=== PATIENT | male | born 1945 | race Caucasian/White ===

== ENCOUNTER 2019-11-30 18:54 | Emergency (ER) | payer MEDICARE, OTHER, SELFPAY ==
[2019-11-30 18:56] VITALS: BP 150/70; PULSE 60; RESP 20; TEMP 36.8; O2SAT 100
--- NOTE | 2019-11-30 19:09 | ED.GENADULT ---
HPI - General Adult General Chief complaint: Wound/Laceration Stated complaint: hand laceration Time Seen by Provider: 11/30/19 19:03 Source: patient Mode of arrival: ambulatory Limitations: no limitations History of Present Illness HPI narrative: Patient is a 73-year-old male who presents to emergency department for evaluation of skin tear to the left hand that occurred just prior to arrival caught the hand on an object noting mild discomfort of the hand worse with palpation unsure as to tetanus status records reviewed that he had one in 2018 denies numbness or tingling Related Data Allergies Allergy/AdvReac Type Severity Reaction Status Date / Time Wasp Allergy Intermediate SWELLING Uncoded 02/05/18 09:40 Review of Systems Review of Systems: Narrative: CONSTITUTIONAL: Denies fever, chills, or sweats. SKIN: Positive for skin tear MUSCULOSKELETAL: Denies joint pain, or myalgia. NEUROLOGIC: Denies numbness, or weakness. PENDING SALE TO [facility] Past Medical History Medical History (Updated 11/30/19 @ 19:13 by Ramirez Pham PA-C) Arthritis Social History Social History Smoking status: Never smoker Exam Narrative: Exam Narrative: GENERAL: Well-appearing, well-nourished, and in no acute distress. HEAD: Normocephalic, atraumatic. EYES: PERRLA and EOMI. ENT: Nares clear, no rhinorrhea or epistaxis. Mucous membranes moist. EXTREMITIES: Normal range of motion. No edema. SKIN: Warm, dry, no rash. 2.5 cm linear skin tear of the dorsal surface of the left hand NEURO: No focal deficits. Alert and oriented x3. Neurovascularly intact PSYCH: Normal mood and affect. Course Course Emergency Course: Patient in the room in no distress aware of case findings treatment plan and diagnosis Vital Signs Vital signs: Vital Signs Temperature 98.2 F 11/30/19 18:56 Pulse Rate 60 11/30/19 18:56 Respiratory Rate 11/30/19 18:56 Blood Pressure 150/70 H 11/30/19 18:56 Pulse Oximetry 100 11/30/19 18:56 Temperature 98.2 F 11/30/19 18:56 Pulse Rate 60 11/30/19 18:56 Respiratory Rate 20 11/30/19 18:56 Blood Pressure 150/70 H 11/30/19 18:56 Pulse Oximetry 100 11/30/19 18:56 Procedures Other Procedure Procedure 1: Other Procedure: Wound was prepped with Shur-Clens with Mepitel dressing and antibiotic ointment placed Medical Decision Making MDM Narrative Medical decision making narrative: Patients injury or pain is consistent with musculoskeletal etiology. No signs of neurological or vascular compromise on exam. Compartments and tisues are soft without signs of compartment syndrome. Pain is felt appropriate for further evaluation on an outpatient basis. Vital Signs Vital Signs: Vital Signs Temperature 98.2 F 11/30/19 18:56 Pulse Rate 60 11/30/19 18:56 Respiratory Rate 20 11/30/19 18:56 Blood Pressure 150/70 H 11/30/19 18:56 Pulse Oximetry 100 11/30/19 18:56 Temperature 98.2 F 11/30/19 18:56 Pulse Rate 60 11/30/19 18:56 Respiratory Rate 20 11/30/19 18:56 Blood Pressure 150/70 H 11/30/19 18:56 Pulse Oximetry 100 11/30/19 18:56 Discharge Plan Discharge Clinical Impression: Skin tear Patient Disposition: Home, Self-Care Condition: Stable Instructions: Antibiotic Form, Acute Wounds (ED) Additional Instructions: Follow up with primary care in the next 7 days for reevaluation as needed return if symptoms worsen or concerns, any increase in redness swelling pain or fever over 100.5 Clean wound with mild soapy water. Apply antibiotic ointment and clean dressing at least three times daily Follow-up/Referrals: PHYSICIAN,BREAKFAST COOK [Primary Care Provider] - Isma Driscoll DO [Physician] -
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
[2019-11-30] MEDS: FAMOTIDINE 20 MG TABLET PO (19:50)
[2019-11-30] MEDS: hydrOXYzine HCL 25 MG TABLET PO (19:50)
[2019-11-30 19:55] VITALS: RESP 18; TEMP 36.7
== END 2019-11-30 19:40 | disposition home or self-care (01) ==
PROVIDERS: Emergency Provider Emergency Medicine
DX: S61.412A Laceration without foreign body of left hand, initial encounter (principal); M19.90 Unspecified osteoarthritis, unspecified site; W26.9XXA Contact with unspecified sharp object(s), initial encounter
CPT/HCPCS: 73140; 99283; A9270

== ENCOUNTER 2023-04-23 21:08 | Emergency (ER) | payer MEDICARE, SELFPAY ==
--- NOTE | ~2023-04-23 | XR_ITS ---
EXAM: XR hand RT min 3V DATE: 04/23/2023 21:39 HISTORY: lac . COMPARISON: None available. FINDINGS: Normal mineralization. No acute fracture or dislocation. Anterior angulation of the second metacarpal shaft, with no visible fracture lines. No lytic or blastic lesion. Overlapping fingers an d the lateral view. 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 No erosion or periosteal change. Soft tissues within normal limits. IMPRESSION: No acute osseous finding in the right hand. Second metacarpal boxer's type fracture, likely chronic unless accompanied by acute pain/tenderness. Reviewed, dictated and finalized at location K. IMPRESSION: No acute osseous finding in the right hand. Second metacarpal boxer's type fracture, likely chronic unless accompanied by a cute pain/tenderness.
[2023-04-23 21:23] VITALS: BP 146/59; PULSE 66; RESP 20; TEMP 36.4; O2SAT 97
[2023-04-24 01:07] VITALS: BP 157/66; PULSE 61; RESP 17; O2SAT 97
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
[2023-04-24] MEDS: TETANUS,DIPHTHERIA,AC PERTUSSIS ADULT (0.5 ML) BOOSTRIX IM (02:18)
== END 2023-04-24 02:24 | disposition home or self-care (01) ==
PROVIDERS: Emergency Provider Physician Assistant
DX: S61.411A Laceration without foreign body of right hand, initial encounter (principal); Z23 Encounter for immunization; M19.90 Unspecified osteoarthritis, unspecified site; Z79.02 Long term (current) use of antithrombotics/antiplatelets; W26.0XXA Contact with knife, initial encounter
CPT/HCPCS: 12001; 73130; 90471; 90715; 99283

== ENCOUNTER 2023-05-04 11:21 | Emergency (ER) | payer MEDICARE, SELFPAY ==
[2023-05-04 11:22] VITALS: BP 147/56; PULSE 60; RESP 18; TEMP 36.4; O2SAT 98
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
== END 2023-05-04 11:56 | disposition home or self-care (01) ==
PROVIDERS: Emergency Provider General Practice
DX: S61.411A Laceration without foreign body of right hand, initial encounter (principal); L08.9 Local infection of the skin and subcutaneous tissue, unspecified; M19.90 Unspecified osteoarthritis, unspecified site; X58.XXXA Exposure to other specified factors, initial encounter
CPT/HCPCS: 15853; 99283